=== PATIENT | male | born 2000 | race Caucasian/White ===

== ENCOUNTER 2021-12-30 12:39 | Emergency (ER) | payer OTHER ==
[2021-12-30] MEDS ORDERED: ACETAMINOPHEN 325 MG TABLET ONE (13:58)
--- NOTE | 2021-12-30 14:21 | RAD REPORT ---
EXAM DESCRIPTION: CT - Head Brain Wo Cont - 12/30/2021 2:02 pm CLINICAL HISTORY: laceration COMPARISON: No comparisons TECHNIQUE: Axial 5 mm thick images of the head were obtained without IV contrast. All CT scans are performed using dose optimization technique as appropriate and may include automated exposure control or mA/KV adjustment according to patient size. FINDINGS: No intraparenchymal hemorrhage is present. There is no mass effect, edema or shift of midl ine structures. No epidural hematoma is present. Along the posterior left-side inner table of the sku ll (image 15/38) there slightly increased density when compared to the right. This is typically volum e averaging of the transverse sinus. The transverse sinus on the left appears be the dominant drained pathway for the patient which could explain the asymmetry. Subdural or subarachnoid hemorrhage along the tentorium is felt be unlikely. No cortical edema or sulcal effacement. No abnormal extra-axial f luid collections. Ventricles are normal. Mastoid air cells and visualized portions of the paranasal sinuses are clear. No skull fracture is seen. No measurable scalp hematoma. IMPRESSION: No intraparenchymal hemorrhage, epidural hematoma or acute brain parenchymal process see n. Minimal focus of increased density along the inner table of the posterior skull is believed to be vol ume averaging affects of dominant left transverse sinus rather than subarachnoid or subdural blood. Repeat CT imaging could be performed if the patient has new or progressive neurologic symptoms.
[2021-12-30] MEDS ORDERED: LIDOCAINE 1% W/EPI 1:100,000 MDV 20 ML VIAL ONE (16:18)
--- NOTE | 2021-12-30 16:23 | ER ---
Nurse's Notes [facility] Name: Gary Hannah Age: 21 yrs Sex: Male : 2000 Arrival Date: 12/30/2021 Time: 12:42 Bed 25 Private MD: Diagnosis: Laceration without foreign body of scalp Presentation: 12/30 13:50 Chief complaint: Patient states: a shelf fell on top of his head at work. Denies LOC, aa5 denies nausea/vomiting. Laceration to top of head noted with no active bleeding noted. 13:50 Coronavirus screen: At this time, the client does not indicate any symptoms associated aa5 with coronavirus-19. Ebola Screen: No symptoms or risks identified at this time. Mechanism of Injury: resulted from impacting a hard surface, shelf. 13:50 Acuity: ELISE 3 aa5 13:50 Method Of Arrival: Ambulatory aa5 13:50 Initial Sepsis Screen: Does the patient meet any 2 criteria? No. Patient's initial aa5 sepsis screen is negative. Does the patient have a suspected source of infection? No. Patient's initial sepsis screen is negative. Risk Assessment: Do you want to hurt yourself or someone else? Patient reports no desire to harm self or others. Historical: - Allergies: 13:57 No Known Allergies; aa5 - PMHx: 13:57 None; aa5 - PSHx: 13:57 None; aa5 - Immunization history:: Adult Immunizations unknown. - Social history:: Smoking status: Reported history of juuling and/or vaping. Screenin:32 Abuse screen: Denies threats or abuse. Nutritional screening: No deficits noted. jb4 Tuberculosis screening: No symptoms or risk factors identified. Fall Risk None identified. Assessment: 15:50 General: Appears in no apparent distress. comfortable, Behavior is calm, cooperative, jb4 appropriate for age. Pain: Denies pain. Neuro: Level of Consciousness is awake, alert, obeys commands, Oriented to person, place, time, situation. Cardiovascular: Patient's skin is warm and dry. Respiratory: Airway is patent Respiratory effort is even, unlabored, Respiratory pattern is regular, symmetrical. Derm: Skin is pink, warm \T\ dry. Musculoskeletal: Circulation, motion, and sensation intact. Range of motion: intact in all extremities. Injury Description: Laceration sustained to left frontal area is clean, superficial, 0.5 to 2.5 cm long, not bleeding. 16:32 Reassessment: Patient appears in no apparent distress at this time. Patient and/or jb4 family updated on plan of care and expected duration. Pain level reassessed. Patient is alert, oriented x 3, equal unlabored respirations, skin warm/dry/pink. Vital Signs: 13:50 BP 130 / 67; Pulse 63; Resp 18 S; Temp 98.2(TE); Pulse Ox 99% on R/A; Weight 68.04 kg aa5 (R); Height 6 ft. 3 in. (190.50 cm) (R); 16:32 BP 128 / 73; Pulse 72; Resp 16; Pulse Ox 100% on R/A; jb4 13:50 Body Mass Index 18.75 (68.04 kg, 190.50 cm) aa5 Margarita Coma Score: 13:45 Eye Response: spontaneous(4). Verbal Response: oriented(5). Motor Response: obeys cp commands(6). Total: 15. 13:50 Eye Response: spontaneous(4). Verbal Response: oriented(5). Motor Response: obeys aa5 commands(6). Total: 15. ED Course: 12:42 Patient arrived in ED. rg4 12:52 Marino Holman PA is PHCP. cp 12:52 Gabe Valenzuela MD is Attending Physician. cp 13:54 Arm band placed on. aa5 13:57 Triage completed. aa5 14:03 CT Head Brain wo Cont In Process Unspecified. EDMS 15:23 Grant Gramajo, RN is Primary Nurse. jb4 16:32 Patient has correct armband on for positive identification. Bed in low position. Call jb4 light in reach. Side rails up X 1. Client placed on continuous cardiac and pulse oximetry monitoring. NIBP monitoring applied. 16:32 No provider procedures requiring assistance completed. Patient did not have IV access jb4 during this emergency room visit. Administered Medications: 13:55 Drug: Tylenol 650 mg Route: PO; aa5 16:00 Follow up: Response: No adverse reaction jb4 Medication: 16:32 VIS not applicable for this client. jb4 Outcome: 16:22 Discharge ordered by . cp 16:32 Discharged to home ambulatory, with family. jb4 16:32 Condition: stable 16:32 Discharge instructions given to patient, Instructed on discharge instructions, follow up and referral plans. Demonstrated understanding of instructions, follow-up care. 16:33 Patient left the ED. jb4 Signatures: Dispatcher [employer] EDNicole Veloz, RN RN aa5 Marino Holman PA PA cp Garcia, Rubi rg4 Grant Gramajo RN RN jb4 Corrections: (The following items were deleted from the chart) 16:32 15:50 Reassessment: Patient appears in no apparent distress at this time. Patient jb4 and/or family updated on plan of care and expected duration. Pain level reassessed. Patient is alert, oriented x 3, equal unlabored respirations, skin warm/dry/pink. jb4
--- NOTE | 2021-12-30 16:23 | EDPHYS ---
Physician Documentation [facility] Name: Gary Hannah Age: 21 yrs Sex: Male : 2000 Arrival Date: 12/30/2021 Time: 12:42 Bed 25 Private MD: ED Physician Gabe Valenzuela HPI: 12/30 13:45 This 21 yrs old Male presents to ER via Ambulatory with complaints of Head cp Injury-Adult, Laceration To Head. 13:45 The patient or guardian reports a laceration, clean, pain. The complaints affect the cp left frontal area. 13:45 Context of injury: The problem was sustained at work, resulted from a direct blow, cp falling metal shelf striking head. 13:45 Onset: The symptoms/episode began/occurred today. Associated signs and symptoms: Loss cp of consciousness: This patient did not experience any loss of consciousness. Pertinent positives: headache, Pertinent negatives: neck pain, seizure, vomiting, generalized weakness. Historical: - Allergies: 13:57 No Known Allergies; aa5 - PMHx: 13:57 None; aa5 - PSHx: 13:57 None; aa5 - Immunization history:: Adult Immunizations unknown. - Social history:: Smoking status: Reported history of juuling and/or vaping. ROS: 13:50 Constitutional: Negative for fever. cp 13:50 Eyes: Negative for injury, pain, redness, and discharge. cp 13:50 Neck: Negative for pain with movement, pain at rest, stiffness. 13:50 Respiratory: Negative for cough, shortness of breath, wheezing. 13:50 Abdomen/GI: Negative for abdominal pain, nausea, vomiting, and diarrhea. 13:50 Back: Negative for pain at rest, pain with movement. 13:50 Skin: Positive for laceration(s), of the left frontal area. 13:50 Neuro: Positive for headache, Negative for altered mental status, dizziness, loss of consciousness, numbness, syncope, weakness. 13:50 All other systems are negative. Exam: 13:55 Constitutional: The patient appears in no acute distress, alert, awake, non-toxic, well cp developed, well nourished. 13:55 Head/face: Noted is a laceration(s), that is deep, that is linear, of the left frontal cp area, tenderness, that is mild, of the left frontal area. 13:55 Eyes: Periorbital structures: appear normal, Pupils: equal, round, and reactive to light and accomodation, Extraocular movements: intact throughout, Conjunctiva: normal, no exudate, no injection, Sclera: no appreciated abnormality, Lids and lashes: appear normal, bilaterally. 13:55 ENT: External ear(s): are unremarkable, Ear canal(s): are normal, clear, TM's: dullness, bilaterally, Nose: is normal, Mouth: Lips: moist, Oral mucosa: pink and intact, moist, Posterior pharynx: Airway: no evidence of obstruction, patent. 13:55 Neck: C-spine: vertebral tenderness, is not appreciated, crepitus, is not appreciated, ROM/movement: is normal, is supple, without pain, no range of motions limitations, no nuchal rigidity. 13:55 Chest/axilla: Inspection: normal, Palpation: is normal, no crepitus, no tenderness. 13:55 Cardiovascular: Rate: normal, Rhythm: regular. 13:55 Respiratory: the patient does not display signs of respiratory distress, Respirations: normal, no use of accessory muscles, no retractions, labored breathing, is not present, Breath sounds: are clear throughout, no decreased breath sounds, no stridor, no wheezing. 13:55 Abdomen/GI: Inspection: abdomen appears normal, Palpation: abdomen is soft and non-tender, in all quadrants. 13:55 Back: pain, is absent, ROM is normal. 13:55 Neuro: Orientation: to person, place \T\ time. Mentation: is normal, Cerebellar function: is grossly normal, Motor: moves all fours, strength is normal, Sensation: is normal, Gait: is steady, at a normal pace, without difficulty. Vital Signs: 13:50 BP 130 / 67; Pulse 63; Resp 18 S; Temp 98.2(TE); Pulse Ox 99% on R/A; Weight 68.04 kg aa5 (R); Height 6 ft. 3 in. (190.50 cm) (R); 16:32 BP 128 / 73; Pulse 72; Resp 16; Pulse Ox 100% on R/A; jb4 13:50 Body Mass Index 18.75 (68.04 kg, 190.50 cm) aa5 Margarita Coma Score: 13:45 Eye Response: spontaneous(4). Verbal Response: oriented(5). Motor Response: obeys cp commands(6). Total: 15. 13:50 Eye Response: spontaneous(4). Verbal Response: oriented(5). Motor Response: obeys aa5 commands(6). Total: 15. Laceration: 16:18 Wound Repair of 3cm ( 1.2in ) subcutaneous laceration to scalp. Linear shaped.. Distal cp neuro/vascular/tendon intact. Anesthesia: Wound infiltrated with 3 mls of 1% lidocaine w/ Epi. Wound prep: Simple cleansing by me. Skin closed with 4 1-0 Sprague using staple gun. Dressed with 4x4's. Patient tolerated well. MDM: 14:00 Differential diagnosis: Contusion of Hematoma on Laceration of Intracranial bleed- cp Concussion cerebral contusion. 16:22 Patient medically screened. 16:22 Data reviewed: vital signs, nurses notes, radiologic studies, CT scan. 16:22 Counseling: I had a detailed discussion with the patient and/or guardian regarding: the cp historical points, exam findings, and any diagnostic results supporting the discharge/admit diagnosis, radiology results, the need for outpatient follow up, a family practitioner, to return to the emergency department if symptoms worsen or persist or if there are any questions or concerns that arise at home. Response to treatment: the patient's symptoms have markedly improved after treatment. Special discussion: Based on the patient's history, exam and DX evaluation, there is no indication for emergent intervention or inpatient TX. It is understood by the patient/guardian that if the SXs persist or worsen they need to return immediately for re-evaluation. 12/30 13:37 Order name: CT Head Brain wo Cont; Complete Time: 15:20 cp 12/30 15:21 Interpretation: Report reviewed. 12/30 15:22 Order name: Wound Care; Complete Time: 16:33 12/30 15:22 Order name: Misc. Order: stapler to bedside; Complete Time: 16:33 cp Administered Medications: 13:55 Drug: Tylenol 650 mg Route: PO; aa5 16:00 Follow up: Response: No adverse reaction jb4 Disposition: 16:47 Co-signature as Attending Physician, Gabe Valenzuela MD. rn Disposition Summary: 12/30/21 16:22 Discharge Ordered Location: Home cp Problem: new cp Symptoms: have improved cp Condition: Stable cp Diagnosis - Laceration without foreign body of scalp cp Followup: cp - With: Private Physician - When: 1 - 2 days - Reason: Recheck today's complaints Discharge Instructions: - Discharge Summary Sheet cp - Head Injury, Adult cp - Sutures, Sprague, or Adhesive Wound Closure cp - Laceration Care, Adult cp - Form - Excuse from Work, School, or Physical Activity cp Forms: - Medication Reconciliation Form cp - Thank You Letter cp - Antibiotic Education cp - Prescription Opioid Use cp Signatures: Dispatcher [employer] EDGabe Anglin MD MD rn Calderon, Audri, RN RN aa5 Marino Holman PA PA cp Bryson, James RN jb4
[2021-12-30 16:38] VITALS: TEMP 98.2
[2021-12-30 16:39] VITALS: BP 128/73; O2SAT 100
== END 2021-12-30 16:33 | disposition home or self-care (01) ==
LOC: ER 12:39
PROC: 0JQ00ZZ Repair Scalp Subcutaneous Tissue and Fascia, Open Approach (ICD-10-PCS; principal; 2021-12-30)
DX: S01.01XA Laceration without foreign body of scalp, initial encounter (principal)
CPT/HCPCS: 70450; 99283

== ENCOUNTER 2022-01-06 14:29 | Emergency (ER) | payer OTHER ==
--- NOTE | 2022-01-06 15:09 | EDPHYS ---
Physician Documentation [facility] Name: Gary Hannah Age: 21 yrs Sex: Male : 2000 Arrival Date: 01/06/2022 Time: 14:31 Bed DIS1 Private MD: ED Physician Sukhjinder Zurita HPI: 01/06 15:06 This 21 yrs old Male presents to ER via Ambulatory with complaints of Suture Removal. jmm 15:06 The patient has diann on the scalp. Sutures/diann progress: The patient has no jmm c/o's. The wound is well-healing with no redness, swelling, discharge, or dehiscence reported. It is unknown whether or not the patient has had similar symptoms in the past. Historical: - Allergies: 14:49 No Known Allergies; lehman - Home Meds: 14:49 None [Active]; lehman - PSHx: 14:49 None; lehman - Immunization history:: Adult Immunizations up to date. - Social history:: Smoking status: Reported history of juuling and/or vaping. ROS: 15:06 Constitutional: Negative for fever, chills, and weight loss, Cardiovascular: Negative jmm for chest pain, palpitations, and edema, Respiratory: Negative for shortness of breath, cough, wheezing, and pleuritic chest pain. 15:06 Skin: Positive for laceration(s). 15:06 All other systems are negative. Exam: 15:06 Constitutional: This is a well developed, well nourished patient who is awake, alert, jmm and in no acute distress. 15:06 Eyes: EOMI, no conjunctival erythema appreciated ENT: Moist Mucus Membranes Neck: Trachea midline, Supple Chest/axilla: Normal chest wall appearance and motion. Cardiovascular: Regular rate and rhythm. No edema appreciated Respiratory: Normal respirations, no respiratory distress appreciated Abdomen/GI: Non distended Back: Normal ROM MS/ Extremity: Moves all extremities, no obvious deformities appreciated, no edema noted to the lower extremities Neuro: Awake and alert Psych: Behavior is normal, Mood is normal, Patient is cooperative and pleasant 15:06 Head/face: 2 cm healed laceration noted to the scalp. Vital Signs: 14:47 BP 117 / 77; Pulse 86; Resp 18; Temp 98.9; Pulse Ox 99% on R/A; Weight 68.04 kg; Height lehman 6 ft. 3 in. (190.50 cm); 14:47 Body Mass Index 18.75 (68.04 kg, 190.50 cm) lehman Procedures: 15:07 Suture/Staple removal: Removed 4 diann, from scalp, site appears well healed, Patient brayanm tolerated well. MDM: 15:04 Patient medically screened. [facility] 15:08 Data reviewed: vital signs, nurses notes. Counseling: I had a detailed discussion with [facility] the patient and/or guardian regarding: the historical points, exam findings, and any diagnostic results supporting the discharge/admit diagnosis, the need for outpatient follow up, to return to the emergency department if symptoms worsen or persist or if there are any questions or concerns that arise at home. Administered Medications: No medications were administered Disposition: 15:29 Co-signature as Attending Physician, Sukhjinder Zurita MD I agree with the assessment and kdr plan of care. 15:32 Co-signature as Attending Physician, Sukhjinder Zurita MD I agree with the assessment and kdr plan of care. Disposition Summary: 01/06/22 15:08 Discharge Ordered Location: Home [facility] Condition: Stable [facility] Diagnosis - Encounter for removal of sutures [facility] Followup: [facility] - With: Private Physician - When: As needed - Reason: Recheck today's complaints, Continuance of care, Re-evaluation by your physician Discharge Instructions: - Discharge Summary Sheet [facility] - Suture Removal, Care After [facility] Forms: - Medication Reconciliation Form [facility] - Thank You Letter [facility] - Antibiotic Education [facility] - Prescription Opioid Use [facility] Signatures: Sukhjinder Zurita MD MD kdr Mickail, Joel, PA PA [facility] Jolanta Russo RN RN
--- NOTE | 2022-01-06 15:09 | ER ---
Nurse's Notes [facility] Name: Gary Hannah Age: 21 yrs Sex: Male : 2000 Arrival Date: 01/06/2022 Time: 14:31 Bed DIS1 Private MD: Diagnosis: Encounter for removal of sutures Presentation: 01/06 14:47 Chief complaint: Patient states: pt present to get stable on top of head removed. lehman Coronavirus screen: Vaccine status: Patient reports receiving the 2nd dose of the covid vaccine. Ebola Screen: Patient denies travel to an Ebola-affected area in the 21 days before illness onset. Initial Sepsis Screen: Does the patient meet any 2 criteria? No. Patient's initial sepsis screen is negative. Does the patient have a suspected source of infection? No. Patient's initial sepsis screen is negative. Risk Assessment: Do you want to hurt yourself or someone else? Patient reports no desire to harm self or others. Onset of symptoms was December 28, 2021. 14:47 Method Of Arrival: Ambulatory 14:47 Acuity: ELISE 4 lehman Triage Assessment: 14:49 General: Appears in no apparent distress. Behavior is calm, cooperative. Pain: Denies lehman pain. Historical: - Allergies: 14:49 No Known Allergies; lehman - Home Meds: 14:49 None [Active]; lehman - PSHx: 14:49 None; lehman - Immunization history:: Adult Immunizations up to date. - Social history:: Smoking status: Reported history of juuling and/or vaping. Screenin:25 Abuse screen: Denies threats or abuse. Nutritional screening: No deficits noted. jb4 Tuberculosis screening: No symptoms or risk factors identified. Fall Risk None identified. Assessment: 15:25 Reassessment: Patient appears in no apparent distress at this time. Patient and/or jb4 family updated on plan of care and expected duration. Pain level reassessed. Patient is alert, oriented x 3, equal unlabored respirations, skin warm/dry/pink. Vital Signs: 14:47 BP 117 / 77; Pulse 86; Resp 18; Temp 98.9; Pulse Ox 99% on R/A; Weight 68.04 kg; Height lehman 6 ft. 3 in. (190.50 cm); 14:47 Body Mass Index 18.75 (68.04 kg, 190.50 cm) ED Course: 14:31 Patient arrived in ED. jj6 14:49 Triage completed. lehman 14:49 Arm band placed on. 14:52 Darryl Chaney PA is PHCP. [facility] 14:52 Sukhjinder Zurita MD is Attending Physician. [facility] 15:25 Patient has correct armband on for positive identification. jb4 15:25 No provider procedures requiring assistance completed. Patient did not have IV access jb4 during this emergency room visit. Administered Medications: No medications were administered Medication: 15:25 VIS not applicable for this client. jb4 Outcome: 15:08 Discharge ordered by . [facility] 15:25 Discharged to home ambulatory. jb4 15:25 Condition: stable 15:25 Discharge instructions given to patient, Instructed on discharge instructions, follow up and referral plans. Demonstrated understanding of instructions, follow-up care. 15:26 Patient left the ED. jb4 Signatures: Darryl Chaney PA PA Grant Jackson, RN RN 4 Usha De Leon jj6 Jolanta Russo, RN RN
[2022-01-06 18:23] VITALS: BP 117/77; TEMP 98.9; O2SAT 99
== END 2022-01-06 15:26 | disposition home or self-care (01) ==
LOC: ER 14:29
DX: Z48.02 Encounter for removal of sutures (principal)
CPT/HCPCS: 99281